=== PATIENT | female | born 1960 | race American Indian/Alaskan Native ===

== ENCOUNTER 2017-07-25 22:22 | Emergency (ER) | payer OTHER ==
[2017-07-25 23:05] VITALS: BP 146/71; PULSE 67; RESP 18; TEMP 98.6; O2SAT 99
[2017-07-25] MEDS ORDERED: Naproxen 500 MG TAB PO ONE ×2 (23:20→23:32)
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
--- NOTE | 2017-07-26 12:33 | RAD ---
PROCEDURE: Cervical Spine Radiographs. HISTORY: Pain. COMPARISON: None. FINDINGS: BONES: Alignment maintained. No fracture. Dens Intact. DISC SPACES: She disc space narrowing and spur formation at C5-6. SOFT TISSUES: Normal. No prevertebral soft tissue swelling. OTHER FINDINGS: None. IMPRESSION: No fracture.
== END 2017-07-26 00:36 | disposition home or self-care (01) ==
LOC: H.ER 22:22
DX: M54.12 Radiculopathy, cervical region (principal)

== ENCOUNTER 2017-09-25 13:07 | Observation (INO) | payer OTHER ==
[2017-09-25 13:15] VITALS: BMI 35.3
[2017-09-25 14:20] LABS: BASO # 0.1 K/uL (0.0-0.2); BASO % 0.8 % (0.0-2.0); EOS # 0.1 K/uL (0.0-0.7); EOS % 1.2 % (0.0-4.0); HEMATOCRIT 41.4 % (34.0-47.0); LYMPH # 2.3 K/uL (1.0-4.3); LYMPH % 27.9 % (20.0-40.0); MEAN CELL VOLUME 90.3 fl (81.0-99.0); MEAN CORPUSCULAR HEMOGLOBIN 29.7 pg (27.0-31.0); MEAN CORPUSCULAR HGB CONC 32.9 g/dL (33.0-37.0); MEAN PLATELET VOLUME 7.8 fl (7.2-11.7); MONO # 0.6 K/uL (0.0-0.8); MONO % 6.6 % (0.0-10.0); NEUT # 5.3 K/uL (1.8-7.0); NEUT % 63.5 % (50.0-75.0); NRBC % 0.1 % (0.0-0.0); RED CELL DISTRIBUTION WIDTH 13.9 % (11.5-14.5); WHITE BLOOD COUNT 8.4 K/uL (4.8-10.8)
[2017-09-25 14:36] LABS: ALKALINE PHOSPHATASE 81 U/L (38-126); ALT/SGPT 36 U/L (9-52); AST/SGOT 23 U/L (14-36); BILIRUBIN,TOTAL 0.5 mg/dl (0.2-1.3); BLOOD UREA NITROGEN 13 mg/dl (7-17); CALCIUM 9.7 mg/dL (8.4-10.2); CARBON DIOXIDE 26 mmol/L (22-30); CHLORIDE 103 mmol/L (98-107); GFR AFRICAN-AMERICAN > 60; GLUCOSE,RANDOM 98 mg/dL (65-105); POTASSIUM 4.3 MMOL/L (3.6-5.0); SODIUM 140 mmol/l (132-148); TOTAL PROTEIN 8.3 G/DL (6.3-8.2)
[2017-09-25 14:37] LABS: ALB/GLOB RATIO 1.3 (1.0-2.1)
[2017-09-25 14:40] LABS: PARTIAL THROMBOPLASTIN TIME 37.6 Seconds (25.6-37.1)
--- NOTE | 2017-09-25 15:23 | RAD ---
HISTORY: Chest pain. COMPARISON: 10/02/2008 TECHNIQUE: Chest PA and lateral FINDINGS: LUNGS: No active pulmonary disease. PLEURA: No significant pleural effusion identified. No pneumothorax apparent. CARDIOVASCULAR: Normal. OSSEOUS STRUCTURES: No significant abnormalities. VISUALIZED UPPER ABDOMEN: Normal. OTHER FINDINGS: None. IMPRESSION: No active disease. No significant interval change compared to the prior examination(s). Concordant results with the preliminary interpretation rendered by the emergency department physician procedure.
--- NOTE | 2017-09-25 16:32 | ED PDOC ---
HPI: Chest Pain Time Seen by Provider: 09/25/17 13:43 Chief Complaint (Nursing): Chest Pain Chief Complaint (Provider): Chest Pain History Per: Patient History/Exam Limitations: no limitations Onset/Duration Of Symptoms: Hrs (x1) Current Symptoms Are (Timing): Still Present Additional Complaint(s): Danni Marquez is a 57 year old female with previous medical history of hypertension, who presents to the emergency department with a complaint of left- sided chest pain radiating to left shoulder ongoing for 1 hour while accompanying daughter for evaluation in ED today. Denied difficulty breathing, dizziness or palpitations. Patient stated she saw Dr. Orourke last month when blood pressure medications were adjusted but did not have prior cardiac work-up , including stress test, performed due to uncontrolled blood pressure. PMD: Loc Gonzalez MD Past Medical History Reviewed: Historical Data, Nursing Documentation, Vital Signs Vital Signs: Last Vital Signs Temp 97.9 F 09/25/17 13:15 Pulse 100 H 09/25/17 13:15 Resp 17 09/25/17 13:15 BP 126/81 09/25/17 13:15 Pulse Ox 99 09/25/17 16:41 - Medical History PMH: HTN - Surgical History Surgical History: - Family History Family History: States: Unknown Family Hx - Social History Current smoker - smoking cessation education provided: No Ex-Smoker (has not smoked in the last 12 months): No Alcohol: None Drugs: Denies - Home Medications Home Medications: Ambulatory Orders Medication Instructions Recorded Cyclobenzaprine [Cyclobenzaprine 10 mg PO Q8 PRN #30 tab 07/25/17 HCl] Naproxen [Naprosyn] 500 mg PO BID PRN #30 tab 07/25/17 - Allergies Allergies/Adverse Reactions: Allergies Allergy/AdvReac Type Severity Reaction Status Date / Time No Known Allergies Allergy Verified 05/25/15 12:47 Review of Systems ROS Statement: Except As Marked, All Systems Reviewed And Found Negative Cardiovascular: Positive for: Chest Pain (left-sided). Negative for: Palpitations Respiratory: Negative for: Shortness of Breath Musculoskeletal: Positive for: Shoulder Pain (left) Neurological: Negative for: Dizziness Physical Exam - Reviewed Nursing Documentation Reviewed: Yes Vital Signs Reviewed: Yes - Physical Exam Appears: Positive for: Well, Non-toxic, No Acute Distress Head Exam: Positive for: ATRAUMATIC, NORMAL INSPECTION, NORMOCEPHALIC Skin: Positive for: Normal Color Eye Exam: Positive for: Normal appearance, EOMI, PERRL. Negative for: Nystagmus ENT: Positive for: Normal ENT Inspection Neck: Positive for: Normal, Painless ROM, Supple. Negative for: Decreased ROM Cardiovascular/Chest: Positive for: Chest Non Tender, Tachycardia Respiratory: Positive for: Normal Breath Sounds, Accessory Muscle Use. Negative for: Decreased Breath Sounds, Respiratory Distress Gastrointestinal/Abdominal: Positive for: Normal Exam, Soft. Negative for: Tenderness Back: Positive for: Normal Inspection. Negative for: L CVA Tenderness, R CVA Tenderness Extremity: Positive for: Normal ROM. Negative for: Tenderness, Pedal Edema, Calf Tenderness, Deformity Neurologic/Psych: Positive for: Alert, Oriented - Laboratory Results Result Diagrams: 09/25/17 14:10 09/25/17 14:10 - ECG O2 Sat by Pulse Oximetry: 99 (RA) Pulse Ox Interpretation: Normal Medical Decision Making Medical Decision Making: Initial Impression: Chest pain Initial Plan: * EKG * CMP * Troponin I * CBC * PTT * PT * CXR * Aspirin 325mg PO * Admit to hospital Time: 1312 --EKG: Sinus arrhythmia at 97 BMP. Interpreted by provider and confirmed with radiologist. --CXR: No active disease noted Time: 1624 --Spoke with Dr. Orourke. Recommended patient placed on OBVS for further evaluation in the morning. --Discussed case with resident, also. --Upon provider reevaluation, patient is feeling better with no pain reported and requires no further treatment in the ED at this time. Patient will be admitted to hospital. Counseling was provided and all questions were answered regarding diagnosis. There is agreement to discharge plan. Return if symptoms persist or worsen. Clinical Impression: Chest pain Scribe Attestation: Documented by Carin Tenorio, acting as a scribe for Karl Odell III, DO. Provider Scribe Attestation: All medical record entries made by the Scribe were at my direction and personally dictated by me. I have reviewed the chart and agree that the record accurately reflects my personal performance of the history, physical exam, medical decision making, and the department course for this patient. I have also personally directed, reviewed, and agree with the discharge instructions and disposition. Disposition - Clinical Impression Clinical Impression: Chest pain - Patient ED Disposition Is Patient to be Admitted: Yes Discussed With DrRitchie: Gustavo Orourke Doctor Will See Patient In The: Hospital Counseled Patient/Family Regarding: Studies Performed, Diagnosis, Need For Followup - Disposition Disposition: Routine/Home Disposition Time: 16:24 Condition: IMPROVED Forms: [facility] (Romansh)
--- NOTE | 2017-09-25 17:47 | CP.PCM.HP ---
History of Present Illness - History of Present Illness History of Present Illness: Family Medicine Note- 57 y.o female with PMH of HTN presents to the ED complaining of left sided chest pain that started around 3pm today. Patient reports that she was sitting at bedside visiting her daughter in the hospital when she started having left sided chest pain. She describes the pain as any achy pain, rating the pain 8/ 10. She reports the pain would simultaneously occurs to the posterior back. She had similar incident in the past in which she discussed with her PCP. States the first episode started a year ago. Went away on it's on. Reports discussing with Dr. Orourke which plans were made to control hypertension prior to cardiac work up stress test. Patient reports that the pain is better when she massages the left chest and under breast. She denies nausea/vomiting/ shortness of breath/chills. She denies dizziness. Denies urinary problems. Denies problems with bowel movements. Last BM this morning. Denies diarrhea. Past Patient History - Past Social History Alcohol: None Drugs: Denies - CARDIAC Hx Hypertension: Yes - PSYCHIATRIC Hx Substance Use: No Meds Allergies/Adverse Reactions: Allergies Allergy/AdvReac Type Severity Reaction Status Date / Time No Known Allergies Allergy Verified 05/25/15 12:47 Results - Vital Signs Recent Vital Signs: Last Vital Signs Temp 97.9 F 09/25/17 17:40 Pulse 94 H 09/25/17 17:40 Resp 17 09/25/17 17:40 BP 119/78 09/25/17 17:40 Pulse Ox 99 09/25/17 16:47 - Labs Result Diagrams: 09/25/17 14:10 09/25/17 14:10 Labs: Laboratory Results - last 24 hr 09/25/17 09/25/17 09/25/17 14:10 14:10 14:10 WBC 8.4 RBC 4.58 Hgb 13.6 Hct 41.4 MCV 90.3 MCH 29.7 MCHC 32.9 L RDW 13.9 Plt Count 379 MPV 7.8 Neut % (Auto) 63.5 Lymph % (Auto) 27.9 Maury % (Auto) 6.6 Eos % (Auto) 1.2 Baso % (Auto) 0.8 Neut # 5.3 Lymph # 2.3 Maury # 0.6 Eos # 0.1 Baso # 0.1 PT 11.6 INR 1.0 APTT 37.6 H Sodium 140 Potassium 4.3 Chloride 103 Carbon Dioxide 26 Anion Gap 15 BUN 13 Creatinine 0.7 Est GFR ( Amer) > 60 Est GFR (Non-Af Amer) > 60 Random Glucose 98 Calcium 9.7 Total Bilirubin 0.5 AST 23 ALT 36 Alkaline Phosphatase 81 Troponin I < 0.0120 Total Protein 8.3 H Albumin 4.6 Globulin 3.7 Albumin/Globulin Ratio 1.3
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
[2017-09-26 08:05] VITALS: BP 113/78; PULSE 71; RESP 18; TEMP 97.7; O2SAT 98
[2017-09-26] MEDS ORDERED: Enoxaparin 40 mg Syringe SC SCH (09:00)
[2017-09-26] MEDS ORDERED: Patient's Own Med (Lisinopril/Hydrochlorothiazide [Lisinopril-Hctz 10-12.5 Mg Tab] 1 TAB) PO SCH (09:00)
--- NOTE | 2017-09-26 09:31 | CP.PCM.CON ---
History of Present Illness - History of Present Illness History of Present Illness: This 57-year-old female known to me over the last 2-3 months after she was started on antihypertensives came to the emergency room to have her daughter taken care off. While in the emergency room she developed left pectoral pain which she says was partially relieved by gently pressing on the left parasternal area. The patient has been fairly active and has never experienced any effort related chest pain. She denies any history of smoking and has never been treated for diabetes or dyslipidemia. Physical examination shows a middle aged pleasant -[place] female who is alert awake over and afebrile and quite free of any chest discomfort at this point. Gently pressing on the left parasternal area does not reproduce her discomfort. Her heart rate was 74 bpm and regular and her blood pressure was 120 /64 mmHg. Her jugular venous pressure was not elevated and there was no edema over the lower extremities. The pedal pulses were well felt. Thyroid and breast did not reveal anything abnormal. The apex was not palpable. The first and second heart sounds were normal. There was no gallop and there were no rales. Abdomen was soft and liver and spleen are not palpable. Her electrocardiogram taken twice shows sinus rhythm with no ischemic abnormalities and no Q waves. Her lab data shows normal troponin levels and normal CBC and BUN and creatinine as well as electrolytes. Impression: Atypical chest pain. No evidence of acute coronary syndrome. Hypertension (well controlled) The patient may be allowed to return home to continue her outpatient management. Past Patient History - Past Medical History & Family History Past Medical History?: Yes - Past Social History Alcohol: None Drugs: Denies - CARDIAC Hx Hypertension: Yes - PULMONARY Hx Respiratory Disorders: No - NEUROLOGICAL Hx Neurological Disorder: No - HEENT Hx HEENT Problems: No - RENAL Hx Chronic Kidney Disease: No - ENDOCRINE/METABOLIC Hx Endocrine Disorders: No - HEMATOLOGICAL/ONCOLOGICAL Hx Blood Disorders: No Hx Blood Transfusions: No - INTEGUMENTARY Hx Dermatological Problems: No - MUSCULOSKELETAL/RHEUMATOLOGICAL Hx Musculoskeletal Disorders: No Hx Falls: Yes - GASTROINTESTINAL Hx Gastrointestinal Disorders: No - GENITOURINARY/GYNECOLOGICAL Hx Genitourinary Disorders: No - PSYCHIATRIC Hx Substance Use: No - SURGICAL HISTORY Hx Surgeries: No - ANESTHESIA Hx Anesthesia: Yes Hx Anesthesia Reactions: No Meds Allergies/Adverse Reactions: Allergies Allergy/AdvReac Type Severity Reaction Status Date / Time No Known Allergies Allergy Verified 05/25/15 12:47 - Medications Medications: Current Medications Enoxaparin Sodium (Lovenox) 40 mg SC DAILY [facility] PRN Reason: Protocol Last Admin: 09/26/17 08:50 Dose: 40 mg Hydrochlorothiazide (Microzide) 12.5 mg PO DAILY [facility] Last Admin: 09/26/17 08:50 Dose: 12.5 mg Lisinopril (Zestril) 10 mg PO DAILY [facility] Last Admin: 09/26/17 08:49 Dose: 10 mg Results - Vital Signs Recent Vital Signs: Last Vital Signs Temp 97.7 F 09/26/17 08:00 Pulse 71 09/26/17 08:49 Resp 18 09/26/17 08:00 BP 113/78 09/26/17 08:49 Pulse Ox 98 09/26/17 08:00 - Labs Result Diagrams: 09/25/17 14:10 09/25/17 14:10 Labs: Laboratory Results - last 24 hr 09/25/17 09/25/17 09/25/17 14:10 14:10 14:10 WBC 8.4 RBC 4.58 Hgb 13.6 Hct 41.4 MCV 90.3 MCH 29.7 MCHC 32.9 L RDW 13.9 Plt Count 379 MPV 7.8 Neut % (Auto) 63.5 Lymph % (Auto) 27.9 Elbert % (Auto) 6.6 Eos % (Auto) 1.2 Baso % (Auto) 0.8 Neut # 5.3 Lymph # 2.3 Elbert # 0.6 Eos # 0.1 Baso # 0.1 PT 11.6 INR 1.0 APTT 37.6 H Sodium 140 Potassium 4.3 Chloride 103 Carbon Dioxide 26 Anion Gap 15 BUN 13 Creatinine 0.7 Est GFR ( Amer) > 60 Est GFR (Non-Af Amer) > 60 Random Glucose 98 Calcium 9.7 Total Bilirubin 0.5 AST 23 ALT 36 Alkaline Phosphatase 81 Troponin I < 0.0120 Total Protein 8.3 H Albumin 4.6 Globulin 3.7 Albumin/Globulin Ratio 1.3 09/26/17 09/26/17 00:35 04:47 WBC RBC Hgb Hct MCV MCH MCHC RDW Plt Count MPV Neut % (Auto) Lymph % (Auto) Elbert % (Auto) Eos % (Auto) Baso % (Auto) Neut # Lymph # Elbert # Eos # Baso # PT INR APTT Sodium Potassium Chloride Carbon Dioxide Anion Gap BUN Creatinine Est GFR ( Amer) Est GFR (Non-Af Amer) Random Glucose Calcium Total Bilirubin AST ALT Alkaline Phosphatase Troponin I < 0.0120 < 0.0120 Total Protein Albumin Globulin Albumin/Globulin Ratio
--- NOTE | 2017-09-26 09:48 | CP.PCM.DIS ---
<Renato Zeng - Last Filed: 09/26/17 13:23> Provider - Provider Date of Admission: 09/25/17 16:24 Attending physician: Omid Crook MD Primary care physician: Dr Gonzalez Consults: Steve Singleton Time Spent in preparation of Discharge (in minutes): 30 Diagnosis - Discharge Diagnosis (1) Atypical chest pain Status: Acute Comment: ACS ruled out. Poss anxiety component. C/W outpatient treatment for HTN Hospital Course - Lab Results Lab Results: Most Recent Lab Values WBC 8.4 K/uL (4.8-10.8) 09/25/17 14:10 RBC 4.58 Mil/uL (3.80-5.20) 09/25/17 14:10 Hgb 13.6 g/dL (12.0-16.0) 09/25/17 14:10 Hct 41.4 % (34.0-47.0) 09/25/17 14:10 MCV 90.3 fl (81.0-99.0) 09/25/17 14:10 MCH 29.7 pg (27.0-31.0) 09/25/17 14:10 MCHC 32.9 g/dL (33.0-37.0) L 09/25/17 14:10 RDW 13.9 % (11.5-14.5) 09/25/17 14:10 Plt Count 379 K/uL (130-400) 09/25/17 14:10 MPV 7.8 fl (7.2-11.7) 09/25/17 14:10 Neut % (Auto) 63.5 % (50.0-75.0) 09/25/17 14:10 Lymph % (Auto) 27.9 % (20.0-40.0) 09/25/17 14:10 Mcdowell % (Auto) 6.6 % (0.0-10.0) 09/25/17 14:10 Eos % (Auto) 1.2 % (0.0-4.0) 09/25/17 14:10 Baso % (Auto) 0.8 % (0.0-2.0) 09/25/17 14:10 Neut # 5.3 K/uL (1.8-7.0) 09/25/17 14:10 Lymph # 2.3 K/uL (1.0-4.3) 09/25/17 14:10 Mcdowell # 0.6 K/uL (0.0-0.8) 09/25/17 14:10 Eos # 0.1 K/uL (0.0-0.7) 09/25/17 14:10 Baso # 0.1 K/uL (0.0-0.2) 09/25/17 14:10 PT 11.6 Seconds (9.8-13.1) 09/25/17 14:10 INR 1.0 (0.9-1.2) 09/25/17 14:10 APTT 37.6 Seconds (25.6-37.1) H 09/25/17 14:10 Sodium 140 mmol/l (132-148) 09/25/17 14:10 Potassium 4.3 MMOL/L (3.6-5.0) 09/25/17 14:10 Chloride 103 mmol/L (98-107) 09/25/17 14:10 Carbon Dioxide 26 mmol/L (22-30) 09/25/17 14:10 Anion Gap 15 (10-20) 09/25/17 14:10 BUN 13 mg/dl (7-17) 09/25/17 14:10 Creatinine 0.7 mg/dl (0.7-1.2) 09/25/17 14:10 Est GFR ( Amer) > 60 09/25/17 14:10 Est GFR (Non-Af Amer) > 60 09/25/17 14:10 Random Glucose 98 mg/dL (65-105) 09/25/17 14:10 Calcium 9.7 mg/dL (8.4-10.2) 09/25/17 14:10 Total Bilirubin 0.5 mg/dl (0.2-1.3) 09/25/17 14:10 AST 23 U/L (14-36) 09/25/17 14:10 ALT 36 U/L (9-52) 09/25/17 14:10 Alkaline Phosphatase 81 U/L (38-126) 09/25/17 14:10 Troponin I < 0.0120 ng/mL (0.00-0.120) 09/26/17 04:47 Total Protein 8.3 G/DL (6.3-8.2) H 09/25/17 14:10 Albumin 4.6 g/dL (3.5-5.0) 09/25/17 14:10 Globulin 3.7 gm/dL (2.2-3.9) 09/25/17 14:10 Albumin/Globulin Ratio 1.3 (1.0-2.1) 09/25/17 14:10 - Hospital Course Hospital Course: 57 y/o with PMHx of HTN admitted to hosp after she presented to ED c/o Ches pain. Patient was admitted for Obs to r/o ACS. Trponins x3, EKG were unremarkable. Patient CP resolved and she was evalauted today by Cardiology and was cleared to go home with previous HTN treatment and f/u as outpatient. Med: Lisinopril-HCTZ Discharge Exam - Head Exam Head Exam: ATRAUMATIC, NORMAL INSPECTION, NORMOCEPHALIC - Eye Exam Eye Exam: EOMI Pupil Exam: NORMAL ACCOMODATION - Respiratory Exam Respiratory Exam: Clear to PA & Lateral, NORMAL BREATHING PATTERN, UNREMARKABLE. absent: Rales - Cardiovascular Exam Cardiovascular Exam: REGULAR RHYTHM, +S1, +S2. absent: Gallop - GI/Abdominal Exam GI & Abdominal Exam: Normal Bowel Sounds, Soft, Unremarkable. absent: Distended , Rebound - Neurological Exam Neurological exam: Alert, Normal Gait, Oriented x3 - Psychiatric Exam Psychiatric exam: Normal Affect, Normal Mood - Skin Skin Exam: Normal Color, Warm Discharge Plan - Follow Up Plan Condition: GOOD Disposition: HOME/ ROUTINE Instructions: Chest Pain (DC), Stress (DC) Additional Instructions: F/U with Dr Gonzalez next Friday or Friday(Call for appt) F/U with Steve Singleton as outpatient as needed/scheduled. If Chest pain,, shortness of breath, palpitations return to ED Referrals: Luis Orourke MD [Staff Provider] - Loc Gonzalez MD [Family Provider] - <Loc Gonzalez - Last Filed: 09/29/17 06:46> Provider - Provider Date of Admission: 09/25/17 16:24 Attending physician: Omid Crook MD Hospital Course - Lab Results Lab Results: Most Recent Lab Values WBC 8.4 K/uL (4.8-10.8) 09/25/17 14:10 RBC 4.58 Mil/uL (3.80-5.20) 09/25/17 14:10 Hgb 13.6 g/dL (12.0-16.0) 09/25/17 14:10 Hct 41.4 % (34.0-47.0) 09/25/17 14:10 MCV 90.3 fl (81.0-99.0) 09/25/17 14:10 MCH 29.7 pg (27.0-31.0) 09/25/17 14:10 MCHC 32.9 g/dL (33.0-37.0) L 09/25/17 14:10 RDW 13.9 % (11.5-14.5) 09/25/17 14:10 Plt Count 379 K/uL (130-400) 09/25/17 14:10 MPV 7.8 fl (7.2-11.7) 09/25/17 14:10 Neut % (Auto) 63.5 % (50.0-75.0) 09/25/17 14:10 Lymph % (Auto) 27.9 % (20.0-40.0) 09/25/17 14:10 Mcdowell % (Auto) 6.6 % (0.0-10.0) 09/25/17 14:10 Eos % (Auto) 1.2 % (0.0-4.0) 09/25/17 14:10 Baso % (Auto) 0.8 % (0.0-2.0) 09/25/17 14:10 Neut # 5.3 K/uL (1.8-7.0) 09/25/17 14:10 Lymph # 2.3 K/uL (1.0-4.3) 09/25/17 14:10 Mcdowell # 0.6 K/uL (0.0-0.8) 09/25/17 14:10 Eos # 0.1 K/uL (0.0-0.7) 09/25/17 14:10 Baso # 0.1 K/uL (0.0-0.2) 09/25/17 14:10 PT 11.6 Seconds (9.8-13.1) 09/25/17 14:10 INR 1.0 (0.9-1.2) 09/25/17 14:10 APTT 37.6 Seconds (25.6-37.1) H 09/25/17 14:10 Sodium 140 mmol/l (132-148) 09/25/17 14:10 Potassium 4.3 MMOL/L (3.6-5.0) 09/25/17 14:10 Chloride 103 mmol/L (98-107) 09/25/17 14:10 Carbon Dioxide 26 mmol/L (22-30) 09/25/17 14:10 Anion Gap 15 (10-20) 09/25/17 14:10 BUN 13 mg/dl (7-17) 09/25/17 14:10 Creatinine 0.7 mg/dl (0.7-1.2) 09/25/17 14:10 Est GFR ( Amer) > 60 09/25/17 14:10 Est GFR (Non-Af Amer) > 60 09/25/17 14:10 Random Glucose 98 mg/dL (65-105) 09/25/17 14:10 Hemoglobin A1c 6.1 % (4.2-6.5) 09/26/17 04:47 Calcium 9.7 mg/dL (8.4-10.2) 09/25/17 14:10 Total Bilirubin 0.5 mg/dl (0.2-1.3) 09/25/17 14:10 AST 23 U/L (14-36) 09/25/17 14:10 ALT 36 U/L (9-52) 09/25/17 14:10 Alkaline Phosphatase 81 U/L (38-126) 09/25/17 14:10 Troponin I < 0.0120 ng/mL (0.00-0.120) 09/26/17 04:47 Total Protein 8.3 G/DL (6.3-8.2) H 09/25/17 14:10 Albumin 4.6 g/dL (3.5-5.0) 09/25/17 14:10 Globulin 3.7 gm/dL (2.2-3.9) 09/25/17 14:10 Albumin/Globulin Ratio 1.3 (1.0-2.1) 09/25/17 14:10 Attending/Attestation - Attestation I have personally seen and examined this patient.: Yes I have fully participated in the care of the patient.: Yes I have reviewed all pertinent clinical information, including history, physical exam and plan: Yes
--- NOTE | 2017-09-26 17:43 | CARD ---
APPROVED REPORT EKG Measurement Heart [id number] SD [id number] <Conclusion> Normal sinus rhythm Possible Left atrial enlargement Borderline ECG
--- NOTE | 2017-09-26 17:45 | CARD ---
APPROVED REPORT EKG Measurement Heart [id number] DC [id number] <Conclusion> Normal sinus rhythm with sinus arrhythmia Biatrial enlargement Abnormal ECG
== END 2017-09-26 12:15 | disposition home or self-care (01) ==
LOC: H.ER 13:07 → H.ERHOLD 16:24 → H.TEL 17:57
PROVIDERS: ADMIT Family Medicine; ATTEND Family Medicine
DX: R07.89 Other chest pain (principal); E78.5 Hyperlipidemia, unspecified; I10 Essential (primary) hypertension; Z82.49 Family history of ischemic heart disease and other diseases of the circulatory system; Z83.3 Family history of diabetes mellitus; Z87.442 Personal history of urinary calculi; G43.909 Migraine, unspecified, not intractable, without status migrainosus
CPT/HCPCS: 36415; 71020; 80053; 83036; 84484; 85025; 85610; 85730; 93005; 96372; 99285; G0378; J1650